=== PATIENT | female | born 1990 | race Caucasian/White ===

== ENCOUNTER 2016-11-12 13:44 | Emergency (ER) | payer MEDICAID ==
--- NOTE | 2016-11-12 14:10 | EDPHY ---
H & P Stated Complaint: Intermittent cramping feeling midsternal x 4 days;airtravel 2 wks ago Time Seen by Provider: 11/12/16 13:52 HPI/ROS: CHIEF COMPLAINT: Chest pain x4 days HISTORY OF PRESENT ILLNESS: 26-year-old female history of hypertension arrives via private vehicle complaining of 4 days of midsternal chest pain and jaw pain after returning from a airline flight to [place]. Concerned about possible pulmonary embolus. History of non estrogen containing control pill and daily cigarette use. No illicit drug use, no cocaine use, no IV drug use. No family history of premature coronary artery disease. She describes the chest pain as nonpleuritic. No leg cramping or pain. Notes history of dependent edema which continues PRIMARY CARE PROVIDER: Richard Bailey REVIEW OF SYSTEMS: A ten point review of systems was performed and is negative with the exception of the items mentioned in the HPI PAST MEDICAL & SURGICAL HISTORY: history of hypertension SOCIAL HISTORY: positive daily tobacco use. No cocaine or drug use. FAMILY HISTORY: No family history of coronary artery disease PHYSICAL EXAM (Prior to examination, patient consented to physical exam, hands were washed and my usual and customary physical exam procedures followed) 1) GENERAL: Well-developed, well-nourished, alert and oriented. Appears anxious. 2) HEAD: Normocephalic, atraumatic 3) HEENT: Pupils equal, round, reactive to light bilaterally. Sclera anicteric. 4) NECK: Full range of motion, no carotid bruit 5) LUNGS: Clear auscultation bilaterally, no wheezes, no rhonchi, no retractions. 6) HEART: Regular rate and rhythm, no murmur, no heave, no gallop. 7) ABDOMEN: No guarding, no rebound, no focal tenderness,, 8) MUSCULOSKELETAL: Moving all extremities, no focal areas of tenderness, no obvious trauma. No peripheral edema or discoloration. Negative Homans no palpable cord 9) BACK: No CVA tenderness, 10) SKIN: No rash, no petechiae. 11) Psychiatric: Patient is oriented X 3, there is no agitation. DIFFERENTIAL DIAGNOSIS:In no particular order, including but not limited to myocardial ischemia, pulmonary embolus, chest wall pain, pleural inflammation and pulmonary infectious causes. - Personal History LMP (Females 10-55): Now Current Tetanus Diphtheria and Acellular Pertussis (TDAP): Yes - Medical/Surgical History Other PMH: HTN - Social History Smoking Status: Current every day smoker Constitutional: Initial Vital Signs Temperature (C) 36.8 C 11/12/16 13:47 Heart Rate 98 11/12/16 13:47 Respiratory Rate 18 11/12/16 13:47 Blood Pressure 139/99 H 11/12/16 13:47 O2 Sat (%) 95 11/12/16 13:47 O2 Delivery Mode Room Air Allergies/Adverse Reactions: codeine Allergy (Severe, Verified 11/12/16 13:46) throat swells Home Medications: Medication Instructions Recorded "Water Pill" 11/12/16 Control (Non-Estrogen) 11/12/16 Medical Decision Making - Diagnostics Imaging Results: Imaging Impressions Chest X-Ray 11/12/16 14:04 Impression: Normal. ED Course/Re-evaluation: The patient was re-evaluated with serial exams. Discussed with secondary to superimposition Dr. Levin in the emergency department. I think that pulmonary embolus, aortic dissection, OK, less than likely this patient at this time, this is based on negative D-dimer, negative troponin, normal chest x-ray, no ST elevation the EKG, lack family risk factors and lack personal risk factors including no history vasculopathy, no history of exogenous estrogen use. We did discuss tobacco use and recommended smoking cessation. She has an appointment at [facility] tomorrow which I recommended she keep. - Data Points Laboratory Results: Laboratory Results 11/12/16 14:20 11/12/16 14:20 11/12/16 11/12/16 11/12/16 14:20 14:20 14:20 WBC RBC Hgb Hct MCV MCH MCHC RDW Plt Count MPV Neut % (Auto) Lymph % (Auto) Irwin % (Auto) Eos % (Auto) Baso % (Auto) Nucleat RBC Rel Count Absolute Neuts (auto) Absolute Lymphs (auto) Absolute Monos (auto) Absolute Eos (auto) Absolute Basos (auto) Absolute Nucleated RBC Immature Gran % Immature Gran # D-Dimer < 0.27 ug/mLFEU ug/mLFEU (0.00-0.50) Sodium 139 mEq/L mEq/L (134-144) Potassium 3.3 mEq/L L mEq/L (3.5-5.2) Chloride 101 mEq/L mEq/L (97-110) Carbon Dioxide 25 mEq/l mEq/l (22-31) Anion Gap 13 mEq/L mEq/L (8-16) BUN 15 mg/dL mg/dL (7-23) Creatinine 0.8 mg/dL mg/dL (0.6-1.0) Estimated GFR > 60 Glucose 91 mg/dL mg/dL (70-100) Calcium 9.9 mg/dL mg/dL (8.5-10.4) Troponin I < 0.012 ng/mL ng/mL (0-0.034) Beta HCG, Qual NEGATIVE 11/12/16 14:20 WBC 10.61 10^3/uL H 10^3/uL (3.80-9.50) RBC 4.89 10^6/uL 10^6/uL (4.18-5.33) Hgb 15.1 g/dL g/dL (12.6-16.3) Hct 41.8 % % (38.0-47.0) MCV 85.5 fL fL (81.5-99.8) MCH 30.9 pg pg (27.9-34.1) MCHC 36.1 g/dL g/dL (32.4-36.7) RDW 11.9 % % (11.5-15.2) Plt Count 231 10^3/uL 10^3/uL (150-400) MPV 10.1 fL fL (8.7-11.7) Neut % (Auto) 70.5 % % (39.3-74.2) Lymph % (Auto) 22.2 % % (15.0-45.0) Irwin % (Auto) 6.0 % % (4.5-13.0) Eos % (Auto) 0.6 % % (0.6-7.6) Baso % (Auto) 0.4 % % (0.3-1.7) Nucleat RBC Rel Count 0.0 % % (0.0-0.2) Absolute Neuts (auto) 7.48 10^3/uL H 10^3/uL (1.70-6.50) Absolute Lymphs (auto) 2.36 10^3/uL 10^3/uL (1.00-3.00) Absolute Monos (auto) 0.64 10^3/uL 10^3/uL (0.30-0.80) Absolute Eos (auto) 0.06 10^3/uL 10^3/uL (0.03-0.40) Absolute Basos (auto) 0.04 10^3/uL 10^3/uL (0.02-0.10) Absolute Nucleated RBC 0.00 10^3/uL 10^3/uL (0-0.01) Immature Gran % 0.3 % % (0.0-1.1) Immature Gran # 0.03 10^3/uL 10^3/uL (0.00-0.10) D-Dimer Sodium Potassium Chloride Carbon Dioxide Anion Gap BUN Creatinine Estimated GFR Glucose Calcium Troponin I Beta HCG, Qual Departure - Departure Disposition: Home, Routine, Self-Care Clinical Impression: Chest pain Qualifiers: Chest pain type: unspecified Qualified Code(s): R07.9 - Chest pain, unspecified Condition: Good Instructions: Chest Pain (ED) Additional Instructions: Seek medical attention if you develop new or worsening chest pain, if you develop new or worsening shortness of breath, or any other symptoms that concern you. Keep your appointment at [facility] tomorrow Referrals: [facility] [Outside] - 1 day without fail
--- NOTE | 2016-11-12 14:15 | CPEKG ---
Heart Rate: 90 RR Interval: 667 P-R Interval: 176 QRSD Interval: 88 QT Interval: 380 QTC Interval: 465 P Heilwood: 61 QRS Heilwood: 40 T Wave Heilwood: 40 EKG Severity - BORDERLINE ECG - EKG Impression: SINUS RHYTHM EKG Impression: BORDERLINE Q WAVES IN INFERIOR LEADS EKG Impression: INFERIOR Q WAVES, PROBABLY NORMAL VARIATION Electronically Signed By: Cate Obregon 12-Nov-2016 22:57:50
[2016-11-12 14:30] LABS: % IMMATURE GRANULYOCYTES 0.3 % (0.0-1.1); ABSOLUTE IMMATURE GRANULOCYTES 0.03 10^3/uL (0.00-0.10); ADD DIFF? NO; ADD MORPH? NO; ADD SCAN? NO; ATYPICAL LYMPHOCYTE FLAG 20 (0-99); FRAGMENT RBC FLAG 0 (0-99); HEMATOCRIT 41.8 % (38.0-47.0); HEMOGLOBIN 15.1 g/dL (12.6-16.3); LEFT SHIFT FLG 0 (0-99); LIPEMIA HEMOLYSIS FLAG 90 (0-99); MEAN CELL HEMOGLOBIN 30.9 pg (27.9-34.1); MEAN CELL HEMOGLOBIN CONCENTR. 36.1 g/dL (32.4-36.7); MEAN CELL VOLUME 85.5 fL (81.5-99.8); MEAN PLATELET VOLUME 10.1 fL (8.7-11.7); PLATELET CLUMPS FLAG 0 (0-99); PLATELET COUNT 231 10^3/uL (150-400); RED BLOOD CELL COUNT 4.89 10^6/uL (4.18-5.33); RED CELL DISTRIBUTION WIDTH 11.9 % (11.5-15.2)
[2016-11-12 14:42] LABS: ANION GAP 13 mEq/L (8-16); CALCIUM 9.9 mg/dL (8.5-10.4); CARBON DIOXIDE 25 mEq/l (22-31); CHLORIDE 101 mEq/L (97-110); CREATININE 0.8 mg/dL (0.6-1.0); GLOMERULAR FILTRATION RATE > 60; GLUCOSE 91 mg/dL (70-100); POTASSIUM 3.3 mEq/L (3.5-5.2); SODIUM 139 mEq/L (134-144)
[2016-11-12 14:54] LABS: TROPONIN I < 0.012 ng/mL (0-0.034)
[2016-11-12 15:26] VITALS: BP 139/96; PULSE 86; RESP 20; TEMP 98.6; O2SAT 94
== END 2016-11-12 15:28 | disposition home or self-care (01) ==
DX: R07.9 Chest pain, unspecified (principal); I10 Essential (primary) hypertension; F17.200 Nicotine dependence, unspecified, uncomplicated

== ENCOUNTER 2018-07-23 16:22 | Emergency (ER) | payer SELFPAY ==
[2018-07-23 16:59] LABS: PLATELET COUNT 248 10^3/uL (150-400)
--- NOTE | 2018-07-23 17:00 | EDPHY ---
HPI/HX/ROS/PE/MDM Narrative: CHIEF COMPLAINT: Abdominal pain, dysuria HPI: The patient is a 28 y/o female with a history of hypertension arriving with her friend complaining of abdominal pain and dysuria for the last 6 days. She describes "itchy" pain in her RLQ and near her umbilical area. She also feels like her abdomen is distended and "like I ate bumblebees." She saw her PCP for these symptoms yesterday and had labs drawn and a UA performed. She was started on Bactrim for possible UTI and told to come into the ED if not feeling better today. She reports her labs showed an elevated WBC. She's had some associated non-bloody diarrhea. She denies fever or vomiting. She's had some decreased oral intake today, though currently feels like she could eat. Last food intake around 10:00 today. No history of abdominal surgeries. REVIEW OF SYSTEMS: A comprehensive 10 system review of systems is otherwise negative aside from elements mentioned in the history of present illness. PMH: Hypertension SOCIAL HISTORY: Employed as [employer]. Friend at bedside. Lives in [place]. PHYSICAL EXAM: General:Patient is alert, in no acute distress. ENT:Eyes are normal to inspection. ENT inspection normal. Neck: Normal inspection. Full range of motion. Respiratory:No respiratory distress. Breath sounds normal bilaterally. Cardiovascular: Regular rate and rhythm. Strong peripheral pulses. Normal cap refill. Abdomen:The abdomen has mild RLQ and suprapubic tenderness to palpation. There are no peritoneal signs. Obese abdomen. Back: Normal to inspection. No tenderness to palpation. Skin: Normal color. No rash. Warm and dry. Extremities: Normal appearance. Full range of motion. Neuro: Oriented x3. Normal motor function. Normal sensory function. ED Course: 28 y/o female presents with a 6-day history of dysuria and RLQ abdominal pain. She has mild RLQ and suprapubic tenderness on exam. Vitals are normal. She does not appear systemically ill. Presentation more consistent with UTI vs. ovarian cyst or appendicitis. Plan for IV, labs, UA, abdominal CT. Abdominal CT: normal appendix, mesenteric lymphadenopathy, right ovarian cyst. Reassessed patient and discussed results. Recommended US for further evaluation of cyst. She agrees with plan. Pelvic US: Right hemorrhagic cyst, no torsion or free fluid. Reassessed patient and discussed findings. Exam is unchanged. 30mg IV Toradol ordered for pain. Plan for discharge with directions to continue Bactrim for her UTI, use NSAIDs for pain, and follow up with OBGYN regarding ovarian cyst in the next week. Return precautions discussed. She is comfortable with this plan. MDM: This patient presents with suprapubic and RLQ abdominal pain in the setting of recently diagnosed UTI. UA looks still positive for infection. Given lateral abdominal tenderness, we performed a CT to rule out appendicitis, and a pelvic ultrasound which showed non-ruptured ovarian cyst without evidence of torsion. Patient already on antibiotics which we will continue. Urine culture sent. Patient comfortable with plan to go home and follow-up with [facility]. We discussed strict return precautions. - Data Points Imaging Results: Imaging Impressions Abdomen CT 07/23/18 17:24 Impression: 1. Normal CT appearance of the appendix. 2. Query low-grade central mesenteric adenitis. 3. There is a 4.5 cm right ovarian cyst. If there is further clinical concern regarding this finding, correlation with pelvic sonography could be considered. 4. Soft tissue fullness at the level of the cervix, which alternatively could also be related to some redundancy of the vaginal fornices. If not recently performed, consider Pap smear. Findings were discussed with Ajith Mcleod MD at 18:05, on 07/23/2018. Pelvic/Renal Ultrasound 07/23/18 18:10 Impression: Consistent with a hemorrhagic right ovarian cyst. Results discussed with Dr. Ajith Mcleod at 7:10 PM. Imaging: Discussed imaging studies w/ call center supervisor Radiologist, I viewed and interpreted images myself Laboratory Results: Laboratory Results 07/23/18 16:40 07/23/18 16:40 07/23/18 07/23/18 07/23/18 16:50 16:40 16:40 WBC RBC Hgb Hct MCV MCH MCHC RDW Plt Count MPV Neut % (Auto) Lymph % (Auto) Jennings % (Auto) Eos % (Auto) Baso % (Auto) Nucleat RBC Rel Count Absolute Neuts (auto) Absolute Lymphs (auto) Absolute Monos (auto) Absolute Eos (auto) Absolute Basos (auto) Absolute Nucleated RBC Immature Gran % Immature Gran # Sodium 137 mEq/L mEq/L (135-145) Potassium 4.0 mEq/L mEq/L (3.5-5.2) Chloride 108 mEq/L mEq/L (97-110) Carbon Dioxide 19 mEq/l L mEq/l (22-31) Anion Gap 10 mEq/L mEq/L (6-14) BUN 15 mg/dL mg/dL (7-23) Creatinine 0.9 mg/dL mg/dL (0.6-1.0) Estimated GFR > 60 Glucose 94 mg/dL mg/dL (70-100) Calcium 10.2 mg/dL mg/dL (8.5-10.4) Beta HCG, Qual NEGATIVE Urine Color RADHA Urine Appearance CLEAR Urine pH 5.0 (5.0-7.5) Ur Specific Bronson 1.017 (1.002-1.030) Urine Protein NEGATIVE (NEGATIVE) Urine Ketones NEGATIVE (NEGATIVE) Urine Blood NEGATIVE (NEGATIVE) Urine Nitrate POSITIVE H (NEGATIVE) Urine Bilirubin NEGATIVE (NEGATIVE) Urine Urobilinogen 4.0 EU H EU (0.2-1.0) Ur Leukocyte Esterase TRACE H (NEGATIVE) Urine RBC 1-3 /hpf /hpf (0-3) Urine WBC 5-10 /hpf H /hpf (0-3) Ur Epithelial Cells 2+ /lpf H /lpf (NONE-1+) Urine Mucus TRACE /lpf /lpf (NONE-1+) Urine Glucose NEGATIVE (NEGATIVE) 07/23/18 16:40 WBC 12.98 10^3/uL H 10^3/uL (3.80-9.50) RBC 5.10 10^6/uL 10^6/uL (4.18-5.33) Hgb 15.5 g/dL g/dL (12.6-16.3) Hct 44.1 % % (38.0-47.0) MCV 86.5 fL fL (81.5-99.8) MCH 30.4 pg pg (27.9-34.1) MCHC 35.1 g/dL g/dL (32.4-36.7) RDW 11.9 % % (11.5-15.2) Plt Count 248 10^3/uL 10^3/uL (150-400) MPV 10.1 fL fL (8.7-11.7) Neut % (Auto) 74.4 % H % (39.3-74.2) Lymph % (Auto) 17.4 % % (15.0-45.0) Jennings % (Auto) 7.2 % % (4.5-13.0) Eos % (Auto) 0.5 % L % (0.6-7.6) Baso % (Auto) 0.3 % % (0.3-1.7) Nucleat RBC Rel Count 0.0 % % (0.0-0.2) Absolute Neuts (auto) 9.65 10^3/uL H 10^3/uL (1.70-6.50) Absolute Lymphs (auto) 2.26 10^3/uL 10^3/uL (1.00-3.00) Absolute Monos (auto) 0.93 10^3/uL H 10^3/uL (0.30-0.80) Absolute Eos (auto) 0.07 10^3/uL 10^3/uL (0.03-0.40) Absolute Basos (auto) 0.04 10^3/uL 10^3/uL (0.02-0.10) Absolute Nucleated RBC 0.00 10^3/uL 10^3/uL (0-0.01) Immature Gran % 0.2 % % (0.0-1.1) Immature Gran # 0.03 10^3/uL 10^3/uL (0.00-0.10) Sodium Potassium Chloride Carbon Dioxide Anion Gap BUN Creatinine Estimated GFR Glucose Calcium Beta HCG, Qual Urine Color Urine Appearance Urine pH Ur Specific Bronson Urine Protein Urine Ketones Urine Blood Urine Nitrate Urine Bilirubin Urine Urobilinogen Ur Leukocyte Esterase Urine RBC Urine WBC Ur Epithelial Cells Urine Mucus Urine Glucose General Time Seen by Provider: 07/23/18 16:40 Initial Vital Signs: Initial Vital Signs Temperature (C) 37 C 07/23/18 16:28 Heart Rate 91 07/23/18 16:28 Respiratory Rate 16 07/23/18 16:28 Blood Pressure 126/89 H 07/23/18 16:28 O2 Sat (%) 94 07/23/18 16:28 O2 Delivery Mode Room Air Allergies/Adverse Reactions: codeine Allergy (Severe, Verified 07/23/18 16:26) throat swells Home Medications: Medication Instructions Recorded Bactrim DS 07/23/18 Gemma 07/23/18 Lisinopril 07/23/18 Departure - Departure Disposition: Home, Routine, Self-Care Clinical Impression: Mesenteric adenitis, Hemorrhagic cyst of right ovary UTI (urinary tract infection) Qualifiers: Urinary tract infection type: acute cystitis Hematuria presence: without hematuria Qualified Code(s): N30.00 - Acute cystitis without hematuria Condition: Good Instructions: Ovarian Cyst (ED), Urinary Tract Infection in Women (ED), Mesenteric Adenitis (ED) Additional Instructions: 1. Continue taking Bactrim as prescribed for UTI. Be sure to complete the entire prescription even if symptoms have resolved. 2. Use ibuprofen as directed on the packaging for pain and inflammation. You received a similar mediation here (Toradol) and should wait 8 hours before taking a dose of ibuprofen. 3. Follow up with OBGYN in the next week for reevaluation. 4. Return to the ED for worsening of condition. Referrals: Chrissy Scott MD [Primary Care Provider] - As per Instructions Ember Pace DO [Doctor of Osteopathy] - As per Instructions Report Scribed for: Ajith Mcleod Report Scribed by: Laine Reynolds Date of Report: 07/23/18 Time of Report: 17:04 Physician Review and Approval Statement: Portions of this note were transcribed by an ED scribe. I personally performed the history, physical exam, and medical decision making; and confirm the accuracy of the information in the transcribed note.
[2018-07-23] MEDS ORDERED: IOPAMIDOL (ISOVUE 370) 100 ML BTL IV ONE (17:29)
[2018-07-23] MEDS ORDERED: KETOROLAC 30 MG/1 ML SDV IVP ONE (19:16)
[2018-07-23 19:27] VITALS: BP 128/89
== END 2018-07-23 19:27 | disposition home or self-care (01) ==
DX: I88.0 Nonspecific mesenteric lymphadenitis (principal); N30.00 Acute cystitis without hematuria; N83.201 Unspecified ovarian cyst, right side
CPT/HCPCS: 96374; J1885; Q9967